=== PATIENT | female | born 1995 | race Caucasian/White ===

== ENCOUNTER 2016-11-20 16:30 | Outpatient (CLI) | payer OTHER ==
[~2016-11-20] VITALS: Ht 170.2 cm; Wt 80.0 kg
[2016-11-20] MEDS ORDERED: PNV11TAB PO (17:14)
[2016-11-20 17:15] VITALS: BP 122/65; PULSE 75; RESP 18
--- NOTE | 2016-11-20 17:50 | RADRPT ---
PROCEDURE: US biophysical profile. CLINICAL INDICATION: Post dates and 41 weeks 1 day. TECHNIQUE: Multiple sonographic images of the uterus were obtained. The images were revi ewed on a PACS workstation. COMPARISON: No prior studies are available for comparison. FINDINGS: There is a single live intrauterine gestation. heart rate is 159 beats per minute. The position is cephalic. The placenta is right lateral grade II with no abruption or previa. The WENDY is 9.2 cm. (Normal = 5-20 cm.) Breathing Movement: 2 Gross Body Movement: 2 Tone: 2 Qualitative Amniotic Fluid Volume: 2 TOTAL: 8 IMPRESSION: 1. The biophysical score is 8/8. RPTAT: QQ .Singh Madsen MD, Date Time Electronically viewed and signed by .Singh Madsen MD, on 11/20/2016 17:50 .R/
--- NOTE | 2016-11-20 17:52 | RADRPT ---
PROCEDURE: US OB. CLINICAL INDICATION: Post dates at 41 weeks gestational age. TECHNIQUE: Multiple sonographic images of the uterus were obtained. The images were revi ewed on a PACS workstation. COMPARISON: No prior studies are available for comparison. FINDINGS: There is a single live intrauterine gestation. heart rate is 139 beats per minute. Measurements were made in order to determine age. The results are as follows: BPD = 9.27 cm. HC = 33.25 cm. AC = 36.96 cm. FL = 7.68 cm. Estimated weight is 3883 +/- 582 grams. Menstrual age by ultrasound dates is 39 weeks 0 days. The estimated date of delivery is 11/27/2016. Position is cephalic and placenta is right lateral grade II. There is no evidence for an abruption o r placenta previa. IMPRESSION: 1. Single live intrauterine gestation of 39 weeks 0 days menstrual age by ultrasound dates. 2. The estimated date of delivery is 11/27/2016. RPTAT: QQ .Singh Madsen MD, Date Time Electronically viewed and signed by .Singh Madsen MD, on 11/20/2016 17:51 .R/
--- NOTE | 2016-11-20 18:52 | QN ---
Documentation Comment iup 41 weeks good fm no complaints exam wnl us and nst wnl a/p iup 41 weeks instructed pt to go to [facility] for induction all questions answered. VITO MONROE MD Nov 20, 2016 18:52
== END 2016-11-20 19:00 | disposition home or self-care (01) ==
LOC: OBT 16:30 → UNDOADMIN 16:36 → L-D 16:36 → OBT 19:00 → EDSTATUS 19:30
DX: O60.03 Preterm labor without delivery, third trimester (principal); Z3A.41 41 weeks gestation of pregnancy
CPT/HCPCS: 76815; 76818; Z7500; G0463